=== PATIENT | female | born 1995 ===

== ENCOUNTER → 2022-08-29 | Outpatient (CLI) | payer OTHER ==
[2022-08-31 01:07] LABS: CHLAMYDIA TRACHOMATIS, NAA Negative (Negative)
== END | disposition home or self-care (01) ==
LOC: LAB SHORT 13:20
PROVIDERS: Nurse Practitioner
DX: Z11.3 Encounter for screening for infections with a predominantly sexual mode of transmission (principal)
CPT/HCPCS: 87491; 87591

== ENCOUNTER 2025-08-10 06:03 | Emergency (ER) | payer OTHER ==
[~2025-08-10] VITALS: Ht 160 cm; Wt 59.9 kg
[2025-08-10 06:12] VITALS: BP 119/85
[2025-08-10] MEDS ORDERED: Mupirocin22 GM TOP (06:27)
== END 2025-08-10 06:35 | disposition home or self-care (01) ==
LOC: ER 06:03
DX: S00.86XA Insect bite (nonvenomous) of other part of head, initial encounter (principal); L03.211 Cellulitis of face; W57.XXXA Bitten or stung by nonvenomous insect and other nonvenomous arthropods, initial encounter; Z91.018 Allergy to other foods; Z88.8 Allergy status to other drugs, medicaments and biological substances
CPT/HCPCS: 99283